=== PATIENT | female | born 1935 | race Caucasian/White ===

== ENCOUNTER 2019-11-15 11:39 | Emergency (ER) | payer OTHER ==
[~2019-11-15] VITALS: Ht 167.6 cm; Wt 63.5 kg
[2019-11-15] MEDS ORDERED: FOLIC ACID1 MG PO (11:58)
[2019-11-15] MEDS ORDERED: PRAVACHOL40 MG PO (11:58)
[2019-11-15] MEDS ORDERED: METHOTREXATE 22.5 M1 PO (11:59)
[2019-11-15] MEDS ORDERED: ASA81BEC PO (11:59)
[2019-11-15] MEDS ORDERED: CARVEDILOL12.5 MG PO (11:59)
[2019-11-15 12:31] LABS: ABSOLUTE EOSINOPHILS 0.2 thou/uL (0.0-0.7); ABSOLUTE LYMPHOCYTES 1.4 thou/uL (0.8-5.3); ABSOLUTE MONOCYTES 0.2 thou/uL (0.0-1.2); ABSOLUTE NEUTROPHILS 2.2 thou/uL (1.6-8.1); BASOPHILS 0.2 %; EOSINOPHILS 5.7 %; HEMATOCRIT 36.7 % (37.0-47.0); HEMOGLOBIN 12.6 gm/dL (12.0-15.0); LYMPHOCYTES 35.3 %; MCH 31.5 pg (26.0-34.0); MCHC 34.3 g/dL (28.0-37.0); MCV 91.8 fL (80.0-100.0); MONOCYTES 3.8 %; MPV 8.1 fl. (7.2-11.1); NUCLEATED RBCS 0 /100WBC; PLATELET COUNT* 62 thou/uL (150-400); RDW-CV 18.1 % (10.5-14.5); WBC 3.9 thou/uL (4.0-11.0)
[2019-11-15 12:39] LABS: POTASSIUM 4.2 mmol/L (3.5-5.1)
[2019-11-15 12:51] LABS: APTT 27.3 Seconds (25.0-31.3); INR 1.4; PROTIME 14.4 Seconds (9.20-11.50)
[2019-11-15 12:54] LABS: ALBUMIN 3.1 g/dL (3.4-5.0); TOTAL BILIRUBIN 0.8 mg/dL (<0.1-1.0); TOTAL PROTEIN 6.5 g/dL (6.4-8.2)
[2019-11-15 13:09] LABS: CALCIUM 8.3 mg/dL (8.5-10.1)
--- NOTE | 2019-11-15 15:27 | EKG ---
[place] [address] ELECTROCARDIOGRAM REPORT Name: COLLIN VALDOVINOS Room: [facility]#: [id number] Admission: 11/15/19 Attend Phys: Discharge: Date of : 35 Date of Service: 11/15/19 1222 Report #: [id number] THIS REPORT FOR: //name// [facility] ED Test Date: 2019-11-15 Test Time: 12:22:46 Pat Name: COLLIN VALDOVINOS Department: Room: Gender: Principal Secretary: JONO : 1935 Requested By: Radha Choi Order Number: [id number] MD: Ravi Pack Measurements Intervals [place] Rate: 88 P: -8 WI: 162 QRS: -48 QRSD: 99 T: 58 QT: 365 QTc: 442 Interpretive Statements Sinus rhythm Left anterior fascicular block Abnormal R-wave progression, early transition Borderline T wave abnormalities No previous ECG available for comparison Electronically Signed On 11-15-2019 15:27:16 CDT by Ravi Pack [email or web address] <ELECTRONICALLY SIGNED> By: Ravi Pack MD, FACC 11/15/19 1527 1222 1222 Ravi Pack MD, [facility] /EPI
[2019-11-15] MEDS ORDERED: ZPAK PO (16:29)
[2019-11-15] MEDS ORDERED: VENTOLIN HFA 1818 GM INH (16:29)
[2019-11-15 16:39] VITALS: BP 149/94
== END 2019-11-15 16:39 | disposition home or self-care (01) ==
LOC: M.ERS 11:39
PROVIDERS: Nurse Practitioner Family
DX: J06.9 Acute upper respiratory infection, unspecified (principal); N28.9 Disorder of kidney and ureter, unspecified; Z20.828 Contact with and (suspected) exposure to other viral communicable diseases; I10 Essential (primary) hypertension; E78.5 Hyperlipidemia, unspecified; M19.90 Unspecified osteoarthritis, unspecified site; Z95.5 Presence of coronary angioplasty implant and graft

== ENCOUNTER 2019-12-15 14:51 | Inpatient (IN) | payer OTHER ==
[~2019-12-15] VITALS: Ht 167.6 cm; Wt 60.0 kg
--- NOTE | ~2019-12-15 | CON ---
[address] [address] CONSULTATION Name: COLLIN VALDOVINOS Room: [place] [address] ADM IN M.R.#: [id number] Admission: 12/15/19 Attend Phys: Robin Chatterjee MD Discharge: Date of : 35 Report #: [id number] THIS REPORT FOR: //name// cc: Wale Schmid MD, Steven E. MD ~ THIS REPORT FOR: //name// CC: Robin Schmid DATE OF SERVICE: 12/16/2019 CONSULT REQUESTED BY: Darius Pires DO. INDICATION FOR CONSULTATION: Acute pulmonary emboli. HISTORY OF PRESENT ILLNESS: An 84-year-old female. She has an extensive history of smoking in the past; however, she discontinued 32 years ago. The patient is now brought here by her family because of increasing shortness of breath for several days, perhaps longer. The patient does report being unwell, was feeling more tired and fatigued and did have a cough as well, but not much sputum. No chest pain, no upper respiratory complaints, no fever or chills. She has unilateral swelling of the right lower extremity. The patient has some joint pains, which are at baseline. The patient is reported to have previously been minimizing her complaints, but when I ask her, she clearly does report a significant increase in shortness of breath, particularly on exertion. Recently, the patient also reports recent weight loss. REVIEW OF SYSTEMS: I asked her 12 questions for review of systems. The patient answered to the negative except as mentioned above. PAST MEDICAL HISTORY: Rheumatoid arthritis; right knee surgery; stent placement in 2000; aortic replacement in the past, the details of what stent placement and aortic replacement infers is not fully known to me at this time; hypertension; hyperlipidemia; skin cancer. SOCIAL HISTORY: There is an extensive history of smoking between 1 pack a day to 1 pack a week for several decades, but she discontinued more than 30 years ago. No known history of heavy alcohol use or illegal drug use. CURRENT MEDICATIONS: List in [place] reviewed. HOME MEDICATIONS: List also in [place] reviewed. Note that the patient is reported to be on methotrexate every week. ALLERGIES: [place] [address] CONSULTATION Name: COLLIN VALDOVINOS Room: [address] IN [facility]#: [id number] Admission: 12/15/19 Attend Phys: Robin Chatterjee MD Discharge: Date of : 35 Report #: [id number] FAMILY HISTORY: It is not known to me as to whether or not there is a history of blood clots in her family. PHYSICAL EXAMINATION: GENERAL: She is alert, awake and oriented, does not appear to be in any distress at this time. VITAL SIGNS: Has a pulse of 90 and a blood pressure of 165/70. She is saturating in the low 90s on 2 liters oxygen via nasal cannula, note that this is lower than expected considering that the patient was not previously on supplemental oxygen. Her respiratory rate is 18. She has a low-grade fever at 37.4. HEENT: Head is normocephalic and atraumatic. NECK: Does not show raised JVP, asymmetry, mass, or lymph nodes. CHEST: Symmetrical expansion on inspection and palpation. On auscultation, breath sounds are bilaterally equal, decreased, expirations are prolonged. There are no added sounds. HEART: Regular. There is no murmur. ABDOMEN: Soft and nontender. EXTREMITIES: Lower extremities show unilateral edema of the right side. There is some calf tenderness on the right side. There is no edema and no calf tenderness on the left side. SKIN: However is dry and intact bilaterally. NEUROLOGICAL: She moves all extremities bilaterally equally and spontaneously with no focal deficit identified. IMAGING DATA: The patient's CTA chest is reviewed. There are bilateral pulmonary emboli noted. There are small infiltrates at bilateral lung bases, which do look atypical. I do not have a previous CT chest available to compare. The infiltrates are too small to be visualized on chest x-rays. LABORATORY DATA: The patient's CBC as well as chemistries performed yesterday in [facility] reviewed. There is a magnesium level performed this morning, this is also in [facility] reviewed. Coagulation studies including a markedly elevated D-dimer level as well as a PT and PTT in [facility] reviewed. COVID-19 antigen is negative. PCR is pending. ASSESSMENT AND PLAN: 1. Bilateral acute pulmonary emboli with a right lower extremity deep vein thrombosis. The patient is on Lovenox. I agree with full anticoagulation. This could be switched over to oral soon. I suggest considering Eliquis. This is a spontaneous clot with no obvious precipitating factors and therefore, I will go ahead and order a hypercoagulability profile as well. Note that, she does have a history of rheumatoid arthritis. Hypercoagulability profile will not have an impact on immediate management, however, may affect long-term therapy. I also want to look at her right heart pressures and therefore, I [address] [address] CONSULTATION Name: COLLIN VALDOVINOS [facility] [address] [id number] Admission: 12/15/19 Attend Phys: Robin Chatterjee MD Discharge: Date of : 35 Report #: [id number] ordered an echo. There is description of stent placement, possibly cardiac stents as well as aortic replacement, I do not have details available. 2. Shortness of breath. Primarily, this appears to be secondary to pulmonary emboli; however, I feel that there is likely a component of bronchospasm as well. 3. Bronchospasm. Note that she has a history of smoking extensively in the past, but has not previously been diagnosed with obstructive lung disease. I ordered 2 doses of Solu-Medrol. I changed her albuterol to scheduled. If her COVID-19 PCR comes back negative, then I will be inclined to treat her with nebulized bronchodilators. Suggest evaluating tomorrow regarding whether more steroids are indicated. Her oxygen saturations are also lower than expected for a patient who has not previously been on oxygen. I suggest obtaining a nocturnal pulse oximetry later prior to her discharge. 4. Atypical infiltrates. These are small in size. My suspicion of COVID-19 is low; however, it is reasonable to check a PCR and keep the patient in isolation until this is back and I do agree with this. I also agree with Scottie. 5. Renal insufficiency. The patient's creatinine was 1.4 on admission. She is on IV fluids; however, she also received IV dye. I requested a creatinine, in fact, a whole basic metabolic profile to be added to her morning labs. From today, if the creatinine is still elevated, then I will check a BMP now as well. We will keep the patient well hydrated considering recent IV dye administration. The patient is on IV fluids at this time. I do not have the patient's baseline creatinine, her previous creatinine was 2.0; however, it does not appear to be the patient's baseline. 6. Hypomagnesemia. I recommend intravenous replacement. Thanks for this consultation. By: [id number] Fernandez MD /nt
[~2019-12-15 14:51] MED LIST: ASA81BEC PO; CARVEDILOL12.5 MG PO; FOLIC ACID1 MG PO; METHOTREXATE 22.5 M1 PO; PRAVACHOL40 MG PO; VENTOLIN HFA 1818 GM INH; ZPAK PO
[2019-12-15 15:11] VITALS: BP 114/64
[2019-12-15 15:54] LABS: HEMATOCRIT 30.7 % (37.0-47.0); HEMOGLOBIN 10.5 gm/dL (12.0-15.0); MCH 32.2 pg (26.0-34.0); MCHC 34.1 g/dL (28.0-37.0); MCV 94.2 fL (80.0-100.0); MPV 7.9 fl. (7.2-11.1); NUCLEATED RBCS 0 /100WBC; PLATELET COUNT* 457 thou/uL (150-400); RBC 3.26 mil/uL (4.20-5.00); RDW-CV 23.1 % (10.5-14.5); WBC 7.5 thou/uL (4.0-11.0)
[2019-12-15 16:02] LABS: CREATININE 1.4 mg/dL (0.6-1.3); POTASSIUM 4.3 mmol/L (3.5-5.1)
[2019-12-15 16:13] LABS: ALBUMIN 2.7 g/dL (3.4-5.0); APTT 22.9 Seconds (25.0-31.3); INR 1.2; PROTIME 12.7 Seconds (9.20-11.50); TOTAL BILIRUBIN 1.7 mg/dL (<0.1-1.0); TOTAL PROTEIN 6.4 g/dL (6.4-8.2)
[2019-12-15 16:29] LABS: ABSOLUTE BASOPHILS 0.2 thou/uL (0.0-0.2); ABSOLUTE LYMPHOCYTES 0.8 thou/uL (0.8-5.3); ABSOLUTE MONOCYTES 0.1 thou/uL (0.0-1.2); ABSOLUTE NEUTROPHILS 6.5 thou/uL (1.6-8.1); ATYPICAL LYMPHS 2 %; METAMYELOCYTES 1 %; PLATELET ESTIMATE INCREASED
[2019-12-15 16:30] LABS: ANISOCYTOSIS 2+; MACROCYTES 2+
[2019-12-15 23:49] VITALS: BP 149/67
[2019-12-16 01:00] VITALS: BP 151/77
[2019-12-16 04:31] VITALS: BP 170/80
--- NOTE | 2019-12-16 07:40 | NUR ---
RECIEVED REPORT FROM [facility]. PT TRANSFERRED TO 227. PT A&OX4. VSS. BILLET INSPECTOR IN PLACE. ADMISSION HISTORY & PHYSICAL ASSESSMENT COMPLETED AND CHARTED. ORIENTED TO ROOM & CALL LIGHT. PT O2 SAT AT 87-89%-HOOKED TO O2 NC 2L. PT DENIES PAIN. PLACED ON ENHANCED ISOLATION FOR PENDING COVID. PT WITH SORE ON BOTTOM AND LESION ON FOREHEAD-PHOTOGRAPH TAKEN. PT ABLE TO SLEEP WELL ON BED. CALL LIGHT WITHIN REACH.
[2019-12-16 08:15] VITALS: BP 165/70
--- NOTE | 2019-12-16 10:12 | EKG ---
[place] [address] ELECTROCARDIOGRAM REPORT Name: COLLIN VALDOVINOS Room: [facility] ADM IN ..#: [id number] Admission: 12/15/19 Attend Phys: Robin Chattejree, Discharge: Date of : 35 Date of Service: 12/15/19 1549 Report #: [id number] THIS REPORT FOR: //name// [facility] ED Test Date: 2019-12-15 Test Time: 15:49:21 Pat Name: COLLIN VALDOVINOS Department: Room: [facility] Gender: F Supply Chain Assistant: KADY : 1935 Requested By: Radha Choi Order Number: [id number] MD: Edu Calixto Measurements Intervals [place] Rate: 100 P: 15 UT: 159 QRS: -44 QRSD: 90 T: 53 QT: 342 QTc: 442 Interpretive Statements Sinus tachycardia Left anterior fascicular block Borderline low voltage, extremity leads Compared to ECG 11/15/2019 12:22:46 Sinus rhythm no longer present T-wave abnormality no longer present Electronically Signed On 12-16-2019 10:12:08 CDT by Edu Calixto [email or web address] <ELECTRONICALLY SIGNED> By: Edu Calixto MD, FACC 12/16/19 1012 1549 1549 Edu Calixto MD, FAC /EPI
[2019-12-16 12:00] VITALS: BP 110/64
--- NOTE | 2019-12-16 12:16 | NUR ---
Nutrition: Pt admitted with bilat pulm embolism. Consult for wt loss. Per [place], wt was 140# in November, now 129#. 10# loss in one month. Per RN, pt is eating well. Will follow wt trends. Alb 2.7, prealb 7.7, BG 153. Regular diet. Meds noted. No nutrition interventions needed at this time. Mild risk. Will f/u on wt, po intake, labs 12/21/19.
--- NOTE | 2019-12-16 14:27 | NUR ---
SPOKE TO IZAIAH TREVINO AND UPDATED ON PLAN OF CARE. NO VISITORS AT THIS TIME D/T BRANDIID R/O
--- NOTE | 2019-12-16 15:39 | NUR ---
CM spoke with Pt's dtr via phone. Pt is covid pending. Pt resides at home alone. Per dtr, over the past few weeks, Pt has gotten progressively weaker. Family has had to start cooking and cleaning for Pt. Dtr lives out of town, but has been driving up regularly to assist, Pt also has other family in the area. Dtr also pays a [employer] to come in and assist as needed when family is not available. Pt has a cane, rollator and RW at home. No home o2. Pt has a history of refusing HH. No hx of skilled. Goal is home at [place] with HH, [facility] to fax HH referral to [facility] p:[phone] f:[phone]. Dtr also inquired about [facility] [place], Pt's had it when he was alive. CM to send referral to [facility], closer to [place], if Pt is in agreement. Following.
[2019-12-16 16:00] VITALS: BP 132/95; BP 145/95
[2019-12-16 18:11] LABS: CALCIUM 7.6 mg/dL (8.5-10.1); CREATININE 1.2 mg/dL (0.6-1.3); POTASSIUM 4.2 mmol/L (3.5-5.1)
--- NOTE | 2019-12-16 18:35 | NUR ---
PT RESTING IN BED THROUGHOUT SHIFT. PT UP TO BSC WITH ASSIST.NSR ON MONITOR. O2@2L NC. SOA WITH EXERTION. TOLERATING PO WELL. DTR UPDATED ON CARE
[2019-12-16 20:00] VITALS: BP 141/66
[2019-12-17] VITALS: BP 131/63
[2019-12-17 03:40] VITALS: BP 137/60
--- NOTE | 2019-12-17 06:07 | NUR ---
PT ASSESSMENT COMPLETED AT BEDSIDE, PLEASE REFER TO CHARTING FOR DETAILS. MEDICATIONS ADMINISTER PER MAR. HOURLY ROUNDING FOR PT SAFETY. PT REPORTS NO C/O PAIN OR DISCOMFORT. CURRENTLY ASLEEP WITH BED ALARM ON AND CALL LIGHT WITHIN REACH.
[2019-12-17 09:32] LABS: ABSOLUTE LYMPHOCYTES 0.5 thou/uL (0.8-5.3); ABSOLUTE MONOCYTES 0.1 thou/uL (0.0-1.2); ABSOLUTE NEUTROPHILS 3.4 thou/uL (1.6-8.1); BASOPHILS 0.2 %; HEMATOCRIT 24.7 % (37.0-47.0); LYMPHOCYTES 12.2 %; MONOCYTES 2.8 %; MPV 8.1 fl. (7.2-11.1); NUCLEATED RBCS 0 /100WBC; POLYS 84.8 %; RBC 2.63 mil/uL (4.20-5.00); RDW-CV 22.3 % (10.5-14.5); WBC 4.1 thou/uL (4.0-11.0)
[2019-12-17 09:33] LABS: HEMOGLOBIN 8.4 gm/dL (12.0-15.0); PLATELET COUNT* 340 thou/uL (150-400)
[2019-12-17 09:44] LABS: CALCIUM 7.3 mg/dL (8.5-10.1); CREATININE 0.9 mg/dL (0.6-1.3); MAGNESIUM 2.3 mg/dL (1.8-2.4)
[2019-12-17 12:34] VITALS: BP 114/52
--- NOTE | 2019-12-17 16:17 | NUR ---
ASSUMED CARE OF PT AROUND 0730 THIS AM. REFER TO ASSESSMENT. VSS. PT MAINTAING OXYGEN SATURATION >92% ON RA THIS SHIFT. NO C/O PAIN. RT INITIATED EDUCATION FOR IS THIS SHIFT. NO OTHER CONCERNS AT THIS TIME. CLWR. WCTM.
[2019-12-17 16:36] VITALS: BP 136/65
[2019-12-17 20:00] VITALS: BP 133/55
--- NOTE | 2019-12-17 20:00 | NUR ---
RECEIVED REPORT AND ASSUMED CARE OF PT, ASSESSMENT COMPLETED. PT PLEASANT AND TALKATIVE. NO SOB NOTED. O2 SAT LOW AT 88%, O2 PER NC APPLIED. TELEMETRY ON SHOWING SR. NO COMPLAINTS VOICED. WILL CONT TO MONITOR AND ASSIST NEEDED.
[2019-12-18] VITALS: BP 160/70
[2019-12-18 03:50] VITALS: BP 150/93
--- NOTE | 2019-12-18 07:05 | NUR ---
AWAKE ALL NIGHT STATING SHE USUALLY STAYS UP. INCONT OF URINE. SM MOISTURE DERMATITIS NOTED TO LT UPPER BUTTOCKS. TELEMETRY CONT TO SHOW SR. NO CHANGE IN ASSESSMENT. HS GOAL OF SAFETY ACHIEVED. HOURLY ROUNDING OBSERVED.
[2019-12-18 10:53] LABS: HEMATOCRIT 27.6 % (37.0-47.0); HEMOGLOBIN 9.3 gm/dL (12.0-15.0); MCH 32.1 pg (26.0-34.0); MCHC 33.8 g/dL (28.0-37.0); MCV 94.8 fL (80.0-100.0); MPV 7.6 fl. (7.2-11.1); RBC 2.91 mil/uL (4.20-5.00); WBC 11.3 thou/uL (4.0-11.0)
[2019-12-18 11:04] LABS: CALCIUM 7.8 mg/dL (8.5-10.1); CREATININE 1.4 mg/dL (0.6-1.3); POTASSIUM 3.6 mmol/L (3.5-5.1)
[2019-12-18 11:31] LABS: % SATURATION 36 % (20-39); IRON 58 ug/dL (50-175)
[2019-12-18 13:51] VITALS: BP 134/60
--- NOTE | 2019-12-18 17:00 | NUR ---
PT ARRIVED TO ROOM 108 VIA WC. PT ORIENTED TO ROOM. CALL LIGHT WITHIN REACH. FAMILY AT BS. DENIES NEEDS
[2019-12-18 19:20] VITALS: BP 134/59
--- NOTE | 2019-12-19 04:32 | NUR ---
PT A&OX4, ON RA, UP WITH SB ASSIST, VSS, NO C/O PAIN THIS SHIFT. PT SLEEPING WELL. HOURLY ROUNDINGS COMPLETE, WILL CONTINUE TO MONITOR.
--- NOTE | 2019-12-19 04:33 | NUR ---
PT A&OX4, ON ROOM AIR, VSS, PT UP WITH SB ASSIST, PT SLEEPING WELL. HOURLY ROUNDINGS COMPLETE, WILL CONTINUE TO MONITOR.
[2019-12-19 08:20] VITALS: BP 176/73
[2019-12-19] MEDS ORDERED: ELIQUIS5 MG PO (09:32)
[2019-12-19 10:06] LABS: ANA INTERPRETATION Negative (Negative)
[2019-12-19 10:50] VITALS: BP 176/73
[2019-12-19 14:08] VITALS: BP 176/73
[2019-12-19 14:52] VITALS: BP 176/73
--- NOTE | 2019-12-19 15:00 | NUR ---
SPOKE WITH PT. AND DAUGHTER,URIEL. PT.HAD CHOSEN [facility] . THEY DID NOT HAVE REFERRAL SENT ON THURSDAY. FAXED REFERRAL TO THEM, ALONG WITH DISCHARGE SUMMARY. CALLED IN ELIQUIS TO [facility] [phone]. COPAY WAS $30. INFORMED PT.AND DAUGHTER. THEY ARE READY FOR DISCHARGE.
[2019-12-19 15:45] VITALS: BP 176/73
--- NOTE | 2019-12-19 15:46 | NUR ---
PT AND DAUGHTER GIVEN DISCHARGE INSTRUCTIONS. VERBALIZED UNDERSTANDING AND ALL QUESTIONS ANSWERED. PT IN STABLE CONDITION, BELONGINGS RETURNED AND IV REMOVED WITHOUT DIFFICULTY. PRESCRIPTIONS SENT TO PREFERRED PHARMACY AND READY FOR PICKUP. NO OTHER CONCERNS VOICED AT DISCHARGE.
--- NOTE | 2019-12-19 16:00 | 2DMMODE ---
[place] [address] 2 D/M-MODE ECHOCARDIOGRAM Name: COLLIN VALDOVINOS Room: [address] IN [facility]#: [id number] Admission: 12/15/19 Attend Phys: Robin Chatterjee, Discharge: Date of : 35 Date of Service: 12/19/19 1559 Report #: [id number] THIS REPORT FOR: cc: Wale Schmid MD, Steven E. MD Holkins,Nate Chua MD [facility] ~ APPROVED REPORT Study performed: 12/19/2019 09:37:07 EXAM: Comprehensive 2D, Doppler, and color-flow Echocardiogram Patient Location: In-Patient Room #: [facility] Status: routine BSA: 1.66 HR: 84 bpm BP: 176/73 mmHg Rhythm: NSR Other Information Study Quality: Good Indications Pulmonary Embolism 2D Dimensions IVSd: 8.37 (7-11mm) LVOT Diam: 20.09 (18-24mm) LVDd: 39.23 mm PWd: 8.68 (7-11mm) Ascending Ao: 31.46 (22-36mm) LVDs: 26.47 (25-40mm) Aortic Root: 31.94 mm Volumes Left Atrial Volume (Systole) LA ESV Index: 29.80 mL/m2 Aortic Valve AoV Peak Bhavik.: 1.31 m/s AO Peak Gr.: 6.84 mmHg LVOT Max P.28 mmHg AO Mean Gr.: 3.23 mmHg LVOT Mean P.07 mmHg LVOT Max V: 1.15 m/s AO V2 VTI: 20.10 cm LVOT Mean V: 0.63 m/s RENÉ (VTI): 3.82 cm2 LVOT V1 VTI: 24.18 cm AI Ripley: 2.67 m/s2 [place] [address] 2 D/M-MODE ECHOCARDIOGRAM Name: COLLIN VALDOVINOS Room: [address] IN ..#: [id number] Admission: 12/15/19 Attend Phys: Robin Chatterjee, Discharge: Date of : 35 Date of Service: 12/19/19 1559 Report #: [id number] AI PHT: 364.44 ms Mitral Valve E/A Ratio: 0.70 MV Decel. Time: 325.29 ms MV E Max Bhavik.: 0.65 m/s MV PHT: 94.34 ms MVA (PHT): 2.33 cm2 TDI E/Lateral E': 6.50 E/Medial E': 7.22 Medial E' Bhavik.: 0.09 m/s Lateral E' Bhavik.: 0.10 m/s Pulmonary Valve PV Peak Bhavik.: 0.84 m/s PV Peak Gr.: 2.80 mmHg Tricuspid Valve RAP Estimate: 5.00 mmHg TR Peak Gr.: 30.07 mmHg RVSP: 35.00 mmHg PA Pressure: 35.00 mmHg Left Ventricle The left ventricle is normal size. There is normal LV segmental wall motion. There is normal left ventricular wall thickness. Left ventricular systolic function is normal. The left ventricular ejection fraction is within the normal range. LVEF is 60%. Grade I - abnormal relaxation pattern. Right Ventricle The right ventricle is normal size. The right ventricular systolic function is normal. Atria The left atrium size is normal. The right atrium size is normal. Aortic Valve The aortic valve is normal in structure. Mild aortic regurgitation. There is no aortic valvular stenosis. Mitral Valve There is mitral annular calcification. Mild calcification at the tip of the anterior leaflet There is no mitral valve regurgitation noted. No evidence of mitral [place] [address] 2 D/M-MODE ECHOCARDIOGRAM Name: COLLIN VALDOVINOS Room: [address] IN [facility]#: [id number] Admission: 12/15/19 Attend Phys: Robin Chatterjee, Discharge: Date of : 35 Date of Service: 12/19/19 1559 Report #: [id number] Tricuspid Valve The tricuspid valve is normal in structure. Mild tricuspid regurgitation. Pulmonic Valve The pulmonary valve is normal in structure. There is no pulmonic valvular regurgitation. Great Vessels The aortic root is normal in size. IVC is normal in size and collapses >50% with inspiration. Pericardium There is no pericardial effusion. <Conclusion> The left ventricle is normal size. There is normal left ventricular wall thickness. Left ventricular systolic function is normal. The left ventricular ejection fraction is within the normal range. LVEF is 60%. Grade I - abnormal relaxation pattern. The right ventricle is normal size. The left atrium size is normal. The aortic valve is normal in structure. Mild aortic regurgitation. There is no aortic valvular stenosis. There is mitral annular calcification. Mild calcification at the tip of the anterior leaflet There is no mitral valve regurgitation noted. No evidence of mitral valve stenosis. The tricuspid valve is normal in structure. Mild tricuspid regurgitation. IVC is normal in size and collapses >50% with inspiration. There is no pericardial effusion. There is normal LV segmental wall motion. <ELECTRONICALLY SIGNED> By: Nate Restrepo MD, [facility] 12/19/19 1559 1559 1559 Nate Restrepo MD, FACC /INF
== END 2019-12-19 16:00 | disposition home health service (06) | DRG 177 ==
LOC: M.ERS 14:51 → M.TBA-ER 19:38 → M.2W 19:38 → M.TBA-ER 23:42 → M.2W 23:55 → M.ORTHSURG 12-18 16:29
PROVIDERS: Internal Medicine; Internal Medicine Critical Care Medicine; Nurse Practitioner Family; ADMIT Internal Medicine; ATTEND Internal Medicine
DX: J15.6 Pneumonia due to other Gram-negative bacteria (principal); I26.99 Other pulmonary embolism without acute cor pulmonale; E43 Unspecified severe protein-calorie malnutrition; I82.411 Acute embolism and thrombosis of right femoral vein; R71.0 Precipitous drop in hematocrit; I10 Essential (primary) hypertension; E78.5 Hyperlipidemia, unspecified; M06.9 Rheumatoid arthritis, unspecified; R00.0 Tachycardia, unspecified; J98.01 Acute bronchospasm; E83.42 Hypomagnesemia; N28.9 Disorder of kidney and ureter, unspecified; Z20.828 Contact with and (suspected) exposure to other viral communicable diseases; Z68.21 Body mass index [BMI] 21.0-21.9, adult; Z85.828 Personal history of other malignant neoplasm of skin; Z95.5 Presence of coronary angioplasty implant and graft; Z95.4 Presence of other heart-valve replacement; Z79.82 Long term (current) use of aspirin; Z79.899 Other long term (current) drug therapy; Z87.891 Personal history of nicotine dependence